=== PATIENT | female | born 1940 | race Caucasian/White ===

== ENCOUNTER 2017-05-03 14:40 | Emergency (ER) | payer MEDICARE, MEDICAID ==
[~2017-05-03] VITALS: Ht 167.6 cm; Wt 84.0 kg
[2017-05-03 14:47] LABS: GLUCOSE,POINT OF CARE 99 MG/DL (70-110)
[2017-05-03] MEDS ORDERED: METF500T4 PO (14:50)
[2017-05-03] MEDS ORDERED: IRON18TA PO (14:50)
[2017-05-03 16:38] VITALS: BP 101/77
== END 2017-05-03 16:38 | disposition home or self-care (01) ==
LOC: EMS 14:42
DX: S90.122A Contusion of left lesser toe(s) without damage to nail, initial encounter (principal); I10 Essential (primary) hypertension; E11.9 Type 2 diabetes mellitus without complications; Z87.891 Personal history of nicotine dependence; W50.0XXA Accidental hit or strike by another person, initial encounter; Y93.89 Activity, other specified; Y92.89 Other specified places as the place of occurrence of the external cause; Y99.8 Other external cause status
CPT/HCPCS: 82962; 99284